=== PATIENT | female | born 1990 | race Caucasian/White ===

== ENCOUNTER 2019-02-21 00:43 | Emergency (ER) | payer MEDICAID ==
[~2019-02-21] VITALS: Ht 160 cm; Wt 68.0 kg
[2019-02-21 01:09] VITALS: BP_SYST 120
--- NOTE | 2019-02-21 01:26 | NUR ---
Pt brought to eye wash station, then will go to ER bed 06. Report given to WILLIAM Bo.
--- NOTE | 2019-02-21 01:26 | NUR ---
Dee gordon in ED - 02/21/19 at 0233 by GUANAKITO Pt brought to eye wash station, then will go to [facility] 1. Report given to WILLIAM Joyce.
--- NOTE | 2019-02-21 01:35 | NUR ---
PT IS AAOX4 AND AMBULATORY. PER PT HER CONTACTS WERE GETTING VERY DRY TONIGHT SO SHE RAN INTO A [employer] TO GRAB MOISTURIZING EYE DROPS AND INSTEAD GRABBED 3% HYDROGEN PEROXIDE CLEANING SOLUTION. PT HAD INSTANT BURNING AND IRRITATION TO RT EYE. WILL CONTINUE TO MONITOR PT.
--- NOTE | 2019-02-21 01:36 | NUR ---
PT DOES NOT HAVE CONTACT LENSES IN AT THIS TIME, UNABLE TO PERFORM ACCURATE VISUAL ACUITY.
[2019-02-21] MEDS ORDERED: FLUORESCEIN SODIUM 1 MG OPHTHALMIC STRIP OP ONE (01:45)
[2019-02-21] MEDS ORDERED: TETRACAINE HCL 0.5% OPHTHALMIC DROPS 15 ML OP ONE (01:45)
--- NOTE | 2019-02-21 01:55 | NUR ---
Eye kit and Wood's Lamp at bedside.
--- NOTE | 2019-02-21 02:10 | NUR ---
Dr. Mckeon at bedside to perform eye exam.
--- NOTE | 2019-02-21 02:55 | NUR ---
Called Poison Control at [phone] and spoke with ARNULFO. Per recommendations: 15 MIN EYE RINSE, EYE EXAM AND IRRIGATION, TREAT FOR IRRITATION. Dr. DALE notified. Will continue to monitor patient.
--- NOTE | 2019-02-21 03:14 | NUR ---
Peña lens applied to right eye with LR flowing per gravity. Pt tolerated insertion well. Will continue to monitor to allow for 500 mL LR irrigation.
--- NOTE | 2019-02-21 03:36 | NUR ---
OLIVA LENSE IRRIGATION COMPLETED AT THIS TIME. PT TOLERATED WELL. PER MD ADMINISTER 2 MORE DROPS OF TETRACAINE TO RT EYE. WILL CONTINUE TO MONITOR PT.
[2019-02-21 04:06] VITALS: BP_SYST 118
--- NOTE | 2019-02-21 04:06 | NUR ---
Patient given written and verbal discharge instructions and verbalizes understanding. ER MD discussed with patient the results and treatment provided. Patient in stable condition. ID arm band removed. IV catheter removed intact and dressing applied, no active bleeding. Rx of GENTAMICIN SULFATE 0.3% OPHTHALMIC SOLUTION given. Patient educated on pain management and to follow up with PMD. Pain Scale 0/10. Opportunity for questions provided and answered. Medication side effect fact sheet provided.
== END 2019-02-21 04:06 | disposition home or self-care (01) ==
LOC: SED 00:43
DX: H10.9 Unspecified conjunctivitis (principal)
CPT/HCPCS: 99283; J7120

== ENCOUNTER 2019-03-23 17:05 | Emergency (ER) | payer MEDICAID ==
[~2019-03-23] VITALS: Ht 160 cm; Wt 73.5 kg
[2019-03-23 17:15] VITALS: BP_SYST 126
[2019-03-23] MEDS ORDERED: KETOROLAC TROMETHAMINE 60 MG/2 ML VIAL IM ONE (18:45)
[2019-03-23] MEDS ORDERED: IBUPROFEN 600 MG TABLET PO ONE (19:00)
[2019-03-23 19:29] LABS: BASOPHILS % (AUTO) 0.7 % (0.0-2.0); EOSINOPHILS # (AUTO) 0.1 K/uL (0.0-0.4); EOSINOPHILS % (AUTO) 3.1 % (0.0-4.0); HEMATOCRIT 38.9 % (36-48); LYMPHOCYTES # (AUTO) 1.6 K/uL (1.0-5.5); LYMPHOCYTES % (AUTO) 36.3 % (20.5-51.5); MEAN CORPUSCULAR HEMOGLOBIN 33 pg (27-31); MEAN CORPUSCULAR HGB CONC 33 % (32-36); MEAN CORPUSCULAR VOLUME 99 fL (79.0-98.0); MONOCYTES # (AUTO) 0.4 K/uL (0.0-1.0); MONOCYTES % (AUTO) 8.2 % (1.7-9.3); NEUTROPHILS # (AUTO) 2.3 K/uL (1.8-7.7); NEUTROPHILS % (AUTO) 51.7 % (40.0-70.0); PLATELET COUNT (AUTO) 211 K/uL (130-430); RED BLOOD CELL COUNT(AUTO) 3.93 MIL/uL (4.2-6.2); RED CELL DISTRIBUTION WIDTH 12.4 % (9.0-15.0); WHITE BLOOD COUNT (AUTO) 4.4 K/uL (4.8-10.8)
[2019-03-23 20:05] VITALS: BP_SYST 126
== END 2019-03-23 20:05 | disposition home or self-care (01) ==
LOC: SED 17:05
DX: N93.8 Other specified abnormal uterine and vaginal bleeding (principal)
CPT/HCPCS: 36415; 81025; 85025; 99283; J1885

== ENCOUNTER 2019-03-26 08:10 | Emergency (ER) | payer MEDICAID ==
[~2019-03-26] VITALS: Ht 160 cm; Wt 70.8 kg
[2019-03-26 08:13] VITALS: BP_SYST 108
[2019-03-26 09:10] VITALS: BP_SYST 121
== END 2019-03-26 09:15 | disposition home or self-care (01) ==
LOC: SED 08:10
DX: H10.9 Unspecified conjunctivitis (principal)
CPT/HCPCS: 99283

== ENCOUNTER 2019-07-05 23:07 | Emergency (ER) | payer MEDICAID ==
[~2019-07-05] VITALS: Ht 160 cm; Wt 68.0 kg
[2019-07-05 23:27] VITALS: BP_SYST 107
--- NOTE | 2019-07-06 00:25 | NUR ---
Patient brought in via wheelchair complaining of left foot pain s/p fall a couple years ago, now worsening within the last 2 hours. Patient denies any recent trauma to the foot but does report that she has started a new job that requires her to be on her feet more. Patient reports difficulty bearing weight. No swelling noted. Pain /. No other complaints/injuries per patietn or as noted. Will continue to monitor.
--- NOTE | 2019-07-06 00:25 | NUR ---
Patient to [facility] for evaluation. Side rails up. Report given to WILLIAM Kulkarni
--- NOTE | 2019-07-06 01:00 | NUR ---
Pt resting comfortably in bed, no signs of acute distress. WIll cont. to monitor.
--- NOTE | 2019-07-06 02:00 | NUR ---
Pt resting comfortably in bed, no signs of acute distress. WIll cont. to monitor.
[2019-07-06] MEDS ORDERED: KETOROLAC TROMETHAMINE 60 MG/2 ML VIAL IM ONE (02:15)
--- NOTE | 2019-07-06 03:10 | NUR ---
Pt went to CT scan via wheelchair, tolerated well. Will cont. to monitor.
--- NOTE | 2019-07-06 03:45 | NUR ---
Pt went to CT scan via wheelchair, tolerated well. WIll cont. to monitor.
--- NOTE | 2019-07-06 04:00 | NUR ---
Pt resting comfortably in bed, no signs of acute distress. Will cont. to monitor.
--- NOTE | 2019-07-06 05:45 | NUR ---
Pt states, "pain is coming back." ER MD made aware.
[2019-07-06] MEDS ORDERED: PIPERACILLIN/TAZO 3.375 GM in NS 50 ML IV ONE (06:00)
--- NOTE | 2019-07-06 06:00 | NUR ---
Moved pt to bed 8.
[2019-07-06] MEDS ORDERED: NACL 0.9% 1,000 ML IV ONE ×2 (06:15→10:00)
[2019-07-06] MEDS ORDERED: MORPHINE 4 MG/ML INJ. SYRINGE IVP ONE (06:30)
[2019-07-06] MEDS ORDERED: PIPERACILLIN/TAZOBACTAM 3.375 GM/VIAL (ZOSYN) IV ONE ×2 (06:30)
[2019-07-06 06:37] LABS: BASOPHILS % (AUTO) 0.6 % (0.0-2.0); EOSINOPHILS # (AUTO) 0.3 K/uL (0.0-0.4); HEMATOCRIT 35.2 % (36-48); HEMOGLOBIN 12.2 g/dL (12.0-16.0); LYMPHOCYTES # (AUTO) 1.9 K/uL (1.0-5.5); LYMPHOCYTES % (AUTO) 32.4 % (20.5-51.5); MEAN CORPUSCULAR HEMOGLOBIN 34 pg (27-31); MEAN CORPUSCULAR HGB CONC 35 % (32-36); MEAN CORPUSCULAR VOLUME 98 fL (79.0-98.0); MONOCYTES # (AUTO) 0.5 K/uL (0.0-1.0); NEUTROPHILS # (AUTO) 3.1 K/uL (1.8-7.7); PLATELET COUNT (AUTO) 201 K/uL (130-430); RED BLOOD CELL COUNT(AUTO) 3.59 MIL/uL (4.2-6.2); WHITE BLOOD COUNT (AUTO) 5.8 K/uL (4.8-10.8)
--- NOTE | 2019-07-06 07:01 | NUR ---
Pt states that her car is parked in the parking lot. She has a white [facility]. Security made aware.
[2019-07-06 07:35] LABS: ERYTHROCYTE SEDIMENTATION RATE 19 MM/HR (0-20)
--- NOTE | 2019-07-06 07:56 | NUR ---
TRANSFER NOTE [facility] ACCEPTING: DR. CANTU REPORT: RM: [id number] BED: 1 AUTH FOR AMB: [id number]
--- NOTE | 2019-07-06 08:08 | NUR ---
Patient to be transferred to [facility]. Is being transferred due to higher level of care. Receiving facility has accepting physician and available space. ER physician has signed transfer form. Patient or responsible republican has agreed to transfer and signed form. Patient belongings inventoried and will be sent with patient. Copy of nursing notes, lab reports, EKG, Physicians Orders and X-rays to be sent with patient. Report called to WILLIAM Hlal at receiving facility. Receiving physician is Dr. Serrano. [facility] ambulance service has been called for transfer. ETA is 0900.
--- NOTE | 2019-07-06 09:50 | NUR ---
Report given to paramedics.
[2019-07-06 09:58] VITALS: BP_SYST 104
--- NOTE | 2019-07-06 09:58 | NUR ---
[facility] transporting patient to [facility].
== END 2019-07-06 09:58 | disposition short-term general hospital (02) ==
LOC: SED 23:07
DX: M00.9 Pyogenic arthritis, unspecified (principal)
CPT/HCPCS: 36415; 73630; 73700; 81025; 83605; 85025; 85651; 86140; 87040; 96365; 96372; 96375; 99285; J1885; J2270; J2543; J7030